=== PATIENT | female | born 1955 | race Caucasian/White ===

== ENCOUNTER 2020-06-04 18:08 | Outpatient (CLI) | payer MEDICARE ==
--- NOTE | 2020-06-04 19:04 | XRAY Report ---
PROCEDURE: Chest 2 View X-Ray INDICATIONS: SHORTNESS OF BREATH TECHNIQUE: 2 view(s) of the chest. COMPARISON: None. FINDINGS: Surgical changes and devices: None. Lungs and pleura: Small left greater than right bilateral pleural effusion and pulmonary vascular con gestion is seen. Bibasilar atelectasis are seen. No gross pneumothorax. Mediastinum: There is tortuous thoracic aorta. Heart size is enlarged. Bones and chest wall: No suspicious bony abnormalities. Soft tissues appear unremarkable. IMPRESSION: Mild CHF changes. Small left greater than right bilateral pleural effusion and bibasilar atelectasis. No gross pneumothorax. Reviewed by: Richmond Baker MD on 06/04/2020 7:03 PM PST Approved by: Richmond Baker MD on 06/04/2020 7:03 PM PST Station ID: [id number]
== END 2020-06-04 18:09 | disposition home or self-care (01) ==
LOC: DI.S 18:08
DX: R06.02 Shortness of breath (principal); R53.83 Other fatigue; I50.9 Heart failure, unspecified

== ENCOUNTER 2020-07-10 11:58 | Outpatient (CLI) | payer MEDICARE ==
[2020-07-10 15:18] LABS: CALCIUM 10.5 mg/dL (8.5-10.3); CREATININE 0.6 mg/dL (0.4-1.0); MAGNESIUM 2.2 mg/dL (1.7-2.8); POTASSIUM 4.2 mmol/L (3.5-5.0)
== END 2020-07-10 11:59 | disposition home or self-care (01) ==
LOC: LAB.S 11:58
PROVIDERS: ATTEND Physician Assistant Medical
DX: Z79.899 Other long term (current) drug therapy (principal)
CPT/HCPCS: 36415; 80048; 83735

== ENCOUNTER 2021-03-03 04:37 | Outpatient (CLI) | payer MEDICARE, OTHER | END 2021-03-03 04:38 | disposition critical access hospital (66) | LOC: EMS 04:37 | DX: R04.0 Epistaxis (principal); Z79.01 Long term (current) use of anticoagulants; I48.91 Unspecified atrial fibrillation | CPT/HCPCS: A0425; A0429 ==

== ENCOUNTER 2021-03-03 05:13 | Emergency (ER) | payer MEDICARE, OTHER ==
[2021-03-03] MEDS ORDERED: SILVER NITRATE APPLICATOR TOP STA (05:27)
[2021-03-03] MEDS ORDERED: LIDOCAINE VISCOUS 2% 15 ML UDC MM STA (05:27)
[2021-03-03] MEDS ORDERED: OXYMETAZOLINE HCL 100 SPRAYS BOTTLE NAS STA (05:27)
--- NOTE | 2021-03-03 05:27 | ED Physician Documentation ---
PD HPI HEENT - Stated complaint Stated Complaint: NOSEBLEED - Chief complaint Chief Complaint: Heent - History obtained from History obtained from: Patient - History of Present Illness Timing - onset: Enter time (03:00), Today Timing - details: Abrupt onset Pain level now: 0 Location: Nose Improves: Nothing Associated symptoms: No: Fever, Congestion Recently seen: Not recently seen - Additional information Additional information: c/o sudden onset left nare epistaxis , atraumatic onset 3 AM. She is on eliquis. Review of Systems Nose: reports: Epistaxis. denies: Congestion, Sinus pressure / pain PD PAST MEDICAL HISTORY - Past Medical History Past Medical History: Yes Cardiovascular: Hypertension, Atrial fibrillation - Present Medications Home Medications: Ambulatory Orders Medication Instructions Recorded Confirmed ALPRAZolam [Alprazolam] 0.5 mg PO DAILY 03/03/21 03/03/21 Apixaban [Eliquis] 5 mg PO DAILY 03/03/21 03/03/21 Flecainide [Tambocar] 100 mg PO BID 03/03/21 03/03/21 Furosemide [Lasix] 40 mg PO DAILY 03/03/21 03/03/21 Gabapentin [Neurontin] 300 mg PO DAILY 03/03/21 03/03/21 Metoprolol Succinate [Toprol Xl] 50 mg PO BID 03/03/21 03/03/21 Pantoprazole [Protonix] 40 mg PO DAILY 03/03/21 03/03/21 Potassium Chloride 10 meq PO DAILY 03/03/21 03/03/21 Rosuvastatin Calcium [Crestor] 10 mg PO DAILY 03/03/21 03/03/21 estradioL [Estradiol (Twice 1 patch 03/03/21 Weekly)] - Allergies Allergies/Adverse Reactions: Allergies Allergy/AdvReac Type Severity Reaction Status Date / Time Sulfa (Sulfonamide Allergy Hives Verified 03/03/21 05:23 Antibiotics) PD ED PE NORMAL - Vitals Vital signs reviewed: Yes - General General: Alert and oriented X 3, Well developed/nourished, Other (active left nare epistaxis, also spitting out blood) - HEENT HEENT: Moist mucous membranes, Pharynx benign PD ED PE EXPANDED - HEENT HEENT: Left nares epistaxis Results - Vitals Vitals: Vital Signs - 24 hr 03/03/21 03/03/21 03/03/21 05:23 05:25 06:43 Temperature 36.2 C L 36.3 C L Heart Rate 87 90 78 Respiratory 16 20 18 Rate Blood Pressure 132/99 H 108/65 115/72 O2 Saturation 96 95 98 Oxygen O2 Source Room air Procedures - Epistaxis Site: Left Preparation: Clots removed, Afrin, Lidocaine, Clamp / pressure applied (clamp had already been applied by ED RN in triage) Treatment: Silver Nitrate Other: Observed - no bleeding, Pt tolerated well PD MEDICAL DECISION MAKING - ED course Complexity details: considered differential, d/w patient ED course: active left nare epistaxis. I asked her to blow out the clot in the left nare which she was able to do, facilitating visualization. Using vaughan-tip suction, I was able to isolate the source of bleeding to a punctate area anterior septum of left nare. I then applied afrin and viscous lidocaine to a cotton ball which was then placed in left nare, removed after 15 minutes. The bleeding had stopped but the source (appears to be a vessel) was still visualized; silver nitrate cautery applied and she was observed for another 20 minutes and had no recurrence of bleeding Departure - Departure Disposition: 01 Home, Self Care Clinical Impression: Epistaxis Condition: Good Instructions: ED Nosebleed Follow-Up: ISELA JONES MD [Primary Care Provider] - Discharge Date/Time: 03/03/21 06:50
[2021-03-03 06:45] VITALS: BP 115/72
== END 2021-03-03 06:50 | disposition home or self-care (01) ==
LOC: EDUNIT# → SUPCPDRO 05:13 → ED 05:13
DX: R04.0 Epistaxis (principal); I48.91 Unspecified atrial fibrillation; Z79.01 Long term (current) use of anticoagulants; I10 Essential (primary) hypertension
CPT/HCPCS: 30901; 99282; 99283; A9270